=== PATIENT | female | born 1990 | race African-American/Black ===

== ENCOUNTER 2019-08-16 15:24 | Emergency (ER) | payer OTHER ==
--- NOTE | 2019-08-16 15:33 | PDOC ---
Rapid Medical Evaluation Chief Complaint: Headache Time Seen by Provider: 08/16/19 15:31 Medical Evaluation: Allergies Allergy/AdvReac Type Severity Reaction Status Date / Time No Known Allergies Allergy Verified 08/09/14 07:09 08/16/19 15:31 CC: headache with yellow nasal drainage. Improved after drainage started. PE: Neuro exam grossly normal. Orders: nothing Patient will proceed to ER for further evaluation. Discharge Disposition - Diagnosis Headache - Referrals - Patient Instructions - Post Discharge Activity
[2019-08-16 15:35] VITALS: BP 119/76; PULSE 58; TEMP 98.4; BMI 29.0
--- NOTE | 2019-08-16 16:03 | PDOC ---
History of Present Illness - General Chief Complaint: Headache Stated Complaint: HEADACHES Time Seen by Provider: 08/16/19 15:31 History Source: Patient Exam Limitations: No Limitations Past History - Travel Traveled outside of the country in the last 30 days: No Close contact w/someone who was outside of country & ill: No - Past Medical History Allergies/Adverse Reactions: Allergies Allergy/AdvReac Type Severity Reaction Status Date / Time No Known Allergies Allergy Verified 08/16/19 15:34 Home Medications: Ambulatory Orders Amoxicillin/Potassium Clav [Augmentin 875-125 Tablet] 1 each PO BID #20 tablet 08/16/19 Fluticasone Prop 0.05% Nasal [Flonase -] 1 - 2 spray NS DAILY #1 spray.pump 01/03 Ibuprofen 600 mg PO Q6H #30 tablet 08/16/19 Ibuprofen [Advil -] 200 mg PO QID 08/16/19 Nystatin Cream [Mycostatin Cream -] 1 applic TP BID #1 tube 08/16/19 Asthma: No Cancer: No Cardiac Disorders: No COPD: No Diabetes: No HTN: No Seizures: No Thyroid Disease: No - Reproductive History (#): 4 Para: 2 Therapeutic (s) & number: Yes - Immunization History Immunization Up to Date: No - Psycho Social/Smoking Cessation Hx Smoking Status: No Smoking History: Never smoked Have you smoked in the past 12 months: No Number of Cigarettes Smoked Daily: 0 Information on smoking cessation initiated: No Hx Alcohol Use: No Drug/Substance Use Hx: No Hx Substance Use Treatment: No Review of Systems - Review of Systems Able to Perform ROS?: Yes Comments:: 08/16/19 16:02 CONSTITUTIONAL: Absent: fever, chills, diaphoresis, generalized weakness, malaise, loss of appetite HEENT: Present: congestion Absent: rhinorrhea, throat pain, throat swelling, difficulty swallowing, mouth swelling, ear pain, eye pain, visual Changes CARDIOVASCULAR: Absent: chest pain, loss of consciousness, palpitations, irregular heart rate, peripheral edema RESPIRATORY: Absent: cough, shortness of breath, dyspnea with exertion, orthopnea, wheezing, stridor, hemoptysis SKIN: Absent: rash, itching, pallor NEUROLOGIC: Present: headache Absent: focal weakness or paresthesias, dizziness, unsteady gait, seizure, mental status changes, bladder or bowel incontinence PSYCHIATRIC: Absent: anxiety, depression, suicidal or homicidal ideation, hallucinations. Is the patient limited Congolese proficient: No *Physical Exam - Vital Signs Last Vital Signs Temp Pulse Resp BP Pulse Ox 98.4 F 58 L 19 119/76 99 08/16/19 15:31 08/16/19 15:31 08/16/19 15:31 08/16/19 15:31 08/16/19 15:31 - Physical Exam Comments: 08/16/19 16:03 GENERAL: Well developed, well nourished. Awake and alert. No acute distress. HEENT: Normocephalic, atraumatic. PERRLA, EOMI. No conjunctival pallor. Sclera are non- icteric. Moist mucous membranes. Oropharynx is clear. TTP over the right frontal and maxillary sinuses. Injected turbinates bilaterally. NECK: Supple. Full ROM. No JVD. Carotid pulses 2+ and symmetric, without bruits. No thyromegaly. No lymphadenopathy. SKIN: Ringworm-like rash to the left bicep. Warm and dry. Normal capillary refill. No jaundice. NEUROLOGICAL: Alert, awake, appropriate. Cranial nerves 2-12 intact. No deficits to light touch and temperature in face, upper extremities and lower extremities. No motor deficits in the in face, upper extremities and lower extremities. Normoreflexic in the upper and lower extremities. Normal speech. Toes are down- going bilaterally. Gait is normal without ataxia. PSYCHIATRIC: Cooperative. Good eye contact. Appropriate mood and affect. Medical Decision Making - Medical Decision Making 08/16/19 16:56 The patient is a 29-year-old female with no past medical history presents to the ER for 3 days of dark yellow congestion and runny nose. She states that she has headaches associated with the congestion. She states that the headache is on the right side where all the congestion is. She also states that she has a rash to her left bicep. Denies fevers, chills, nausea, vomiting dizziness and lightheadedness. A/P: Sinusitis On exam tenderness palpation of the right frontal and maxillary sinuses. Injected nasal turbinates Consistent with an acute sinusitis. 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 She notes that some of the residents had ringworm. Rash is consistent with ringworm will treat with nystatin cream I discussed the physical exam findings, ancillary test results and final diagnoses with the patient. I answered all of the patient's questions. The patient was satisfied with the care received and felt comfortable with the discharge plan and treatment plan. The Patient agrees to follow up with the primary care physician/specialist within 24-72 hours. Return precautions were given. Discharge - Discharge Information Problems reviewed: Yes Clinical Impression/Diagnosis: Ringworm Sinus infection Qualifiers: Sinusitis location: frontal Chronicity: acute Recurrence: non-recurrent Qualified Code(s): J01.10 - Acute frontal sinusitis, unspecified Condition: Stable Disposition: HOME - Admission No - Follow up/Referral Referrals: Heiu Strong MD [Primary Care Provider] - - Patient Discharge Instructions Patient Printed Discharge Instructions: DI for Sinusitis Additional Instructions: You have a sinus infection. Please take the Augmentin twice a day for 10 days. Take with food Take warm steamy showers to help with decongestion. He may also buy a Evon pot. He may take Motrin 600 mg every 6 hours as needed for pain or fever Use the Flonase twice a day to help with decongestion You may use the nystatin cream to the affected area twice a day Follow-up with your primary care doctor this week. Return to the ER for any new or worsening symptoms. - Post Discharge Activity Work/Back to School Note: Back to Work
== END 2019-08-16 16:59 | disposition home or self-care (01) ==
LOC: JERFT 15:24
DX: B35.9 Dermatophytosis, unspecified (principal); J01.10 Acute frontal sinusitis, unspecified
CPT/HCPCS: 99281-25

== ENCOUNTER 2019-12-23 06:16 | Emergency (ER) | payer OTHER ==
[2019-12-23 06:38] VITALS: BP 129/77; PULSE 67; TEMP 97.9; BMI 28.1
--- NOTE | 2019-12-23 07:23 | PDOC ---
*Physical Exam - Vital Signs Last Vital Signs Temp Pulse Resp BP Pulse Ox 97.9 F 67 18 129/77 100 12/23/19 06:36 12/23/19 06:36 12/23/19 06:36 12/23/19 06:36 12/23/19 06:36 Medical Decision Making - Medical Decision Making 12/23/19 09:47 29 y/o female here w/all over body itching and sore throat that started this morning. States she noticed some hives on her hands that have since disappeared. Last meal was a [place] buffet around 9-10 p.m. yesterday evening. No chest pain, shortness of breath, abdominal cramping. Patient is well appearing with normal vital signs. No appreciable hives or rash on PE. Itching relieved with PO Benadryl, steroids, H2 blockers - d/c home with return precautions. Discharge - Discharge Information Problems reviewed: Yes Clinical Impression/Diagnosis: Allergic reaction Qualifiers: Encounter type: initial encounter Qualified Code(s): T78.40XA - Allergy, unspecified, initial encounter Condition: Improved Disposition: HOME - Follow up/Referral Referrals: Hieu Strong MD [Primary Care Provider] - - Patient Discharge Instructions Additional Instructions: I recommend following up with your primary care doctor for your ED visit today, you may benefit from an allergy test. You can take Benadryl for itchiness. Come back to the emergency room if you feel short of breath, have throat swelling or if any new or concerning symptom develops. Thank you - Post Discharge Activity
[2019-12-23] MEDS ORDERED: FAMOTIDINE 20 MG TABLET PO ONE (07:28)
[2019-12-23] MEDS ORDERED: DEXAMETHASONE SOD PHOSPHATE 10 MG/1 ML VIAL PO ONE (07:28)
[2019-12-23] MEDS ORDERED: diphenhydrAMINE HCL 25 MG CAPSULE (FP) PO ONE ×2 (07:28→08:21)
[2019-12-23] MEDS ORDERED: FAMOTIDINE 20 MG/50 ML IVPB 20 MG/50 ML MG IVPB ONE (08:11)
[2019-12-23] MEDS ORDERED: DEXAMETHASONE SOD PHOSPHATE 10 MG/1 ML VIAL ONE ×2 (08:11→08:21)
[2019-12-23] MEDS ORDERED: FAMOTIDINE 20 MG TABLET ONE (08:22)
--- NOTE | 2019-12-23 09:01 | PDOC ---
History of Present Illness - General Chief Complaint: Allergic Reaction Stated Complaint: ALLERGIC REACTION Time Seen by Provider: 12/23/19 07:09 History Source: Patient Exam Limitations: No Limitations - History of Present Illness Initial Comments: 12/23/19 08:56 29y F with no significant PMH presenting to ED for an allergic reaction. Pt states she went to a buffet last night at around 2200 and woke up 3-4y ago with hives and a scratching sensation in her throat. She has not had a reaction before. Pt states she saw hives all over her body with pruritis. Denies chest pain, headache, n/v/d, urinary symptoms. PMH: none PSH: none Meds: none Allergies: nkda Past History - Past Medical History Allergies/Adverse Reactions: Allergies Allergy/AdvReac Type Severity Reaction Status Date / Time No Known Allergies Allergy Verified 12/23/19 06:36 Home Medications: Ambulatory Orders NK [No Known Home Medication] 12/23/19 Asthma: No Cancer: No Cardiac Disorders: No COPD: No Diabetes: No HTN: No Seizures: No Thyroid Disease: No - Reproductive History (#): 4 Para: 2 Therapeutic (s) & number: Yes - Immunization History Immunization Up to Date: No - Psycho Social/Smoking Cessation Hx Smoking Status: No Smoking History: Never smoked Have you smoked in the past 12 months: No Number of Cigarettes Smoked Daily: 0 Information on smoking cessation initiated: No Hx Alcohol Use: No Drug/Substance Use Hx: No Hx Substance Use Treatment: No Review of Systems - Review of Systems Constitutional: No: Symptoms Reported HEENTM: Yes: See HPI Respiratory: Yes: See HPI Cardiac (ROS): Yes: See HPI ABD/GI: No: Symptoms Reported : No: Symptoms Reported Musculoskeletal: No: Symptoms Reported Integumentary: Yes: See HPI Neurological: No: Symptoms reported *Physical Exam - Vital Signs Last Vital Signs Temp Pulse Resp BP Pulse Ox 97.9 F 67 18 129/77 100 12/23/19 06:36 12/23/19 06:36 12/23/19 06:36 12/23/19 06:36 12/23/19 06:36 - Physical Exam General Appearance: Yes: Nourished, Appropriately Dressed, Other (sleeping when I saw her). No: Apparent Distress HEENT: positive: EOMI, EMA, Normal ENT Inspection, Pharynx Normal. negative: Pharyngeal Erythema, Tonsillar Exudate, Tonsillar Erythema, Nasal Congestion, Rhinorrhea Neck: positive: Trachea midline, Supple. negative: Stridor Respiratory/Chest: positive: Lungs Clear, Normal Breath Sounds. negative: Crackles, Rales, Rhonchi, Stridor, Wheezing Cardiovascular: positive: Regular Rhythm, Regular Rate, S1, S2. negative: Edema , JVD, Murmur Gastrointestinal/Abdominal: positive: Normal Bowel Sounds, Soft. negative: Tender Musculoskeletal: negative: CVA Tenderness Extremity: positive: Normal Capillary Refill. negative: Pedal Edema, Swelling, Calf Tenderness Integumentary: positive: Normal Color, Dry, Warm. negative: Erythema, Hives, Rash, Swelling Neurologic: positive: ultrasonic tester II-XII NML intact, Fully Oriented, Alert, Normal Mood/ Affect, Normal Response, Motor Strength 03/19 ED Treatment Course - Medications Given in the ED: ED Medications Discontinued Medications Generic Name Dose Route Start Last Admin Trade Name Freq PRN Reason Stop Dose Admin Dexamethasone Sodium Phosphate 10 mg 12/23/19 07:28 12/23/19 08:15 Decadron Injection - PO 12/23/19 07:29 10 mg ONCE ONE Administration Diphenhydramine HCl 25 mg 12/23/19 07:28 12/23/19 08:15 Benadryl - PO 12/23/19 07:29 25 mg ONCE ONE Administration Famotidine 20 mg 12/23/19 07:28 12/23/19 08:15 Pepcid - PO 12/23/19 07:29 20 mg ONCE ONE Administration Medical Decision Making - Medical Decision Making 12/23/19 08:58 29y F presenting for hives. no lesions seen. normal OP, no swelling or erythema. no stridor or wheezing. vitals wnl will give Benadryl, decadron and pepcid po. pt feeling better, will dc home, given return precautions, pmd f/u. Discharge - Discharge Information Problems reviewed: Yes Clinical Impression/Diagnosis: Allergic reaction Qualifiers: Encounter type: initial encounter Qualified Code(s): T78.40XA - Allergy, unspecified, initial encounter Condition: Improved Disposition: HOME - Admission No - Follow up/Referral Referrals: Hieu Strong MD [Primary Care Provider] - - Patient Discharge Instructions Additional Instructions: I recommend following up with your primary care doctor for your ED visit today, you may benefit from an allergy test. You can take Benadryl for itchiness. Come back to the emergency room if you feel short of breath, have throat swelling or if any new or concerning symptom develops. Thank you - Post Discharge Activity
--- NOTE | 2019-12-23 09:10 | PDOC ---
Attending Attestation - Resident Resident Name: Ramila Greenwood - ED Attending Attestation I have performed the following: I have examined & evaluated the patient, The case was reviewed & discussed with the resident, I agree w/resident's findings & plan, Exceptions are as noted - HPI HPI: 12/23/19 09:03 29-year-old female presents with several hours of diffuse pruritus and globus sensation in her throat. Patient denies shortness of breath/rash - Physicial Exam PE: 12/23/19 09:03 Patient is awake and alert, well-appearing, in no significant distress Normocephalic and atraumatic PERRLA, EOMI Oropharynx is clear Uvula is midline and is nonedematous No stridor Skin is clear, no petechial rash - Medical Decision Making 12/23/19 09:10 29-year-old well-appearing female presents with diffuse pruritus without evidence of airway compromise. Patient is received Benadryl, steroids and H2 blockers. Patient is resting comfortably at this time. Will discharge with outpatient follow-up.
== END 2019-12-23 09:20 | disposition home or self-care (01) ==
LOC: JER 06:16
DX: L50.0 Allergic urticaria (principal); T78.49XA Other allergy, initial encounter; X58.XXXA Exposure to other specified factors, initial encounter
CPT/HCPCS: 99281-25; J1100

== ENCOUNTER 2022-05-31 15:32 | Emergency (ER) | payer OTHER ==
[2022-05-31] MEDS ORDERED: SODIUM CHLORIDE 1,000 ML IV STA (15:35)
[2022-05-31 15:48] LABS: BASO % 2.4 % (0-2.0); EOS % 2.1 % (0-4.5); HEMOGLOBIN 11.4 GM/dL (10.7-15.3); LYMPH % 55.7 % (8-40); MCH 27.2 pg (25.7-33.7); MCHC 32.6 g/dl (32.0-36.0); MEAN CELL VOLUME 83.3 fl (80-96); MEAN PLT VOLUME 9.1 fl (7.5-11.1); MONO % 12.7 % (3.8-10.2); NEUT % 27.1 % (42.8-82.8); PLATELET COUNT 298 10^3/uL (134-434); RDW 13.4 % (11.6-15.6); WHITE BLOOD COUNT 6.7 K/mm3 (4.0-10.0)
[2022-05-31 15:53] VITALS: TEMP 98; BMI 27.6
[2022-05-31 15:53] LABS: INR 1.06 (0.83-1.09); PROTHROMBIN TIME (PATIENT) 12.2 SEC (9.7-13.0)
[2022-05-31 15:59] LABS: ALBUMIN 3.8 g/dl (3.4-5.0); BLOOD UREA NITROGEN 9.2 mg/dL (7-18)
[2022-05-31 16:02] LABS: CREATININE 0.9 mg/dL (0.55-1.3)
[2022-05-31 16:04] LABS: BILIRUBIN,TOTAL 1.2 mg/dL (0.2-1)
[2022-05-31] MEDS ORDERED: ceFAZolin 2 GRAM PREMIX BAG IVPB ONE (16:06)
[2022-05-31 16:12] LABS: TOT PROT 7.2 g/dl (6.4-8.2)
[2022-05-31] MEDS ORDERED: ONDANSETRON 4 MG/2 ML VIAL IVPUSH ONE (16:21)
[2022-05-31] MEDS ORDERED: HYDROmorphone HCL CARPU-JECT 2 MG/1 ML DISP.SYRIN IVPUSH ONE (16:21)
[2022-05-31] MEDS ORDERED: SODIUM CHLORIDE 0.9% 500 ML INFUS.BAG IV ONE (16:28)
[2022-05-31] MEDS ORDERED: ONDANSETRON 4 MG/2 ML VIAL ONE (16:29)
[2022-05-31] MEDS ORDERED: HYDROmorphone HCl 2 MG/ML VIAL ONE (16:29)
[2022-05-31] MEDS ORDERED: CEFAZOLIN SODIUM 2 GM in DEXTROSE 5%-WATER 100 ML IVPB ONE (16:30)
[2022-05-31] MEDS ORDERED: ceFAZolin SODIUM 1 GM VIAL ONE (16:31)
[2022-05-31 16:46] VITALS: BP 109/69; PULSE 69
== END 2022-05-31 16:45 | disposition short-term general hospital (02) ==
LOC: JER 15:32
PROC: 3E03329 Introduction of Other Anti-infective into Peripheral Vein, Percutaneous Approach (ICD-10-PCS; principal; 2022-05-31)
PROC: 3E033NZ Introduction of Analgesics, Hypnotics, Sedatives into Peripheral Vein, Percutaneous Approach (ICD-10-PCS; 2022-05-31)
PROC: 3E03329 Introduction of Other Anti-infective into Peripheral Vein, Percutaneous Approach (ICD-10-PCS; 2022-05-31)
PROC: 3E033GC Introduction of Other Therapeutic Substance into Peripheral Vein, Percutaneous Approach (ICD-10-PCS; 2022-05-31)
PROC: 3E0337Z Introduction of Electrolytic and Water Balance Substance into Peripheral Vein, Percutaneous Approach (ICD-10-PCS; 2022-05-31)
PROC: 3E033GC Introduction of Other Therapeutic Substance into Peripheral Vein, Percutaneous Approach (ICD-10-PCS; 2022-05-31)
DX: S42.301A Unspecified fracture of shaft of humerus, right arm, initial encounter for closed fracture (principal)
CPT/HCPCS: 36415; 71045-TC-FY; 73060-TC-RT-FY; 76604; 76705-TC; 80053; 84703; 85025; 85610; 86850; 86900; 86901; 93005; 93010; 93308; 99291

== ENCOUNTER 2023-10-25 09:29 | Emergency (ER) | payer OTHER ==
[2023-10-25 09:54] VITALS: TEMP 98.6; BMI 27.3
[2023-10-25] MEDS ORDERED: FAMOTIDINE 20 MG/50 ML IVPB 20 MG/50 ML MG IVPB ONE ×3 (10:42→10:56)
[2023-10-25] MEDS ORDERED: SODIUM CHLORIDE 0.9% 500 ML INFUS.BAG IV ONE (10:42)
[2023-10-25] MEDS ORDERED: ACETAMINOPHEN 1000 MG/100 ML BAG IVPB ONE (10:42)
[2023-10-25] MEDS ORDERED: ONDANSETRON 4 MG/2 ML VIAL IVPUSH ONE (10:42)
[2023-10-25] MEDS ORDERED: ACETAMINOPHEN INJECTION 100 ML IVPB ONE (10:46)
[2023-10-25] MEDS ORDERED: ONDANSETRON 4 MG/2 ML VIAL ONE (10:47)
[2023-10-25] MEDS ORDERED: ALBUTEROL SO4 2.5/IPRATROPIUM 0.5 INH SOL 3 ML VIAL.NEB. NEB ONE (10:56)
[2023-10-25] MEDS ORDERED: ALBUTEROL SO4 2.5/IPRATROPIUM 0.5 INH SOL 3 ML VIAL.NEB. NEB SCH (11:00)
[2023-10-25 12:24] LABS: HEMATOCRIT 37.6 % (32.4-45.2); HEMOGLOBIN 12.1 GM/dL (10.7-15.3); MCH 26.9 pg (25.7-33.7); MCHC 32.2 g/dl (32.0-36.0); MEAN CELL VOLUME 83.7 fl (80-96); MEAN PLT VOLUME 9.3 fl (7.5-11.1); PLATELET COUNT 327 10^3/uL (134-434); RDW 13.4 % (11.6-15.6); WHITE BLOOD COUNT 2.9 K/mm3 (4.0-10.0)
[2023-10-25 12:43] LABS: POTASSIUM 4.5 mmol/L (3.5-5.1)
[2023-10-25 12:44] LABS: CALCIUM 8.8 mg/dL (8.5-10.1)
[2023-10-25 12:45] LABS: BLOOD UREA NITROGEN 6.9 mg/dL (7-18); MAGNESIUM 2.1 mg/dL (1.8-2.4)
[2023-10-25 12:47] LABS: CREATININE 0.8 mg/dL (0.55-1.3)
[2023-10-25 12:49] LABS: BILIRUBIN,TOTAL 1.2 mg/dL (0.2-1); TOT PROT 7.7 g/dl (6.4-8.2)
[2023-10-25 12:57] VITALS: BP 111/76; PULSE 68; RESP 17
[2023-10-25 14:05] LABS: ANISOCYTOSIS 1+; MACROCYTOSIS 0
== END 2023-10-25 13:03 | disposition home or self-care (01) ==
LOC: JERFT 09:29
PROC: 3E033GC Introduction of Other Therapeutic Substance into Peripheral Vein, Percutaneous Approach (ICD-10-PCS; principal; 2023-10-25)
PROC: 3E033NZ Introduction of Analgesics, Hypnotics, Sedatives into Peripheral Vein, Percutaneous Approach (ICD-10-PCS; 2023-10-25)
PROC: 3E033GC Introduction of Other Therapeutic Substance into Peripheral Vein, Percutaneous Approach (ICD-10-PCS; 2023-10-25)
PROC: 3E0F7GC Introduction of Other Therapeutic Substance into Respiratory Tract, Via Natural or Artificial Opening (ICD-10-PCS; 2023-10-25)
DX: R50.9 Fever, unspecified (principal); R05.9 Cough, unspecified; R09.81 Nasal congestion; U07.1 COVID-19; D72.819 Decreased white blood cell count, unspecified
CPT/HCPCS: 0241U-QW; 36415; 80053; 83690; 83735; 84703; 85025; 99284-25